=== PATIENT | male | born 1990 | race Two or more races ===

== ENCOUNTER 2017-11-16 08:13 | Emergency (ER) | payer BC ==
--- NOTE | 2017-11-16 10:13 | EDM.PDOC ---
ED HPI GENERAL MEDICAL PROBLEM - General Chief Complaint: Gastrointestinal Problem Stated Complaint: HEMORRHOID Time Seen by Provider: 11/16/17 10:08 Source of Information: Reports: Patient History Limitations: Reports: No Limitations - History of Present Illness INITIAL COMMENTS - FREE TEXT/NARRATIVE: 27-year-old male presents to the ED with painful swelling at the anus for the last 3 days. She reports she's had hemorrhoidal problems once in the past. States his stools are usually soft and regular. Have a diarrhea problem. Does stand a lot in the workplace sometimes 12 hours or more. While he was in the ED has hemorrhoid x-ray ruptured and has provided him with a good deal of pain relief. Onset: Gradual Onset Date: 11/13/17 Duration: Day(s): Location: Reports: Other (Anus) Quality: Reports: Ache, Pressure, Throbbing Severity: Severe (Pain 8 out of 10.) Improves with: Reports: Other (Pain much improved since hemorrhoid has ruptured. ) Worsens with: Reports: Other (Standing or touching the area.) Context: Denies: Activity, Exercise, Lifting, Sick Contact, Trauma, Other Associated Symptoms: Reports: No Other Symptoms Treatments ST[employer]ET [employer]: Reports: NSAIDS Rectal Pain Score (Numeric/FACES): 8 - Related Data Allergies Allergy/AdvReac Type Severity Reaction Status Date / Time No Known Allergies Allergy Verified 11/16/17 08:42 Home Meds: Home Meds . [No Known Home Meds] 11/16/17 [History] Past Medical History - Past Health History Medical/Surgical History: Denies Medical/Surgical History Social & Family History - Tobacco Use Smoking Status *Q: Never Smoker - Recreational Drug Use Recreational Drug Use: No - Living Situation & Occupation Living situation: Reports: Single Occupation: Employed ED ROS GENERAL - Review of Systems Review Of Systems: See Below Constitutional: Reports: No Symptoms HEENT: Reports: No Symptoms Respiratory: Reports: No Symptoms Cardiovascular: Reports: No Symptoms Endocrine: Reports: No Symptoms GI/Abdominal: Reports: Other (External hemorrhoids) : Reports: No Symptoms Musculoskeletal: Reports: No Symptoms Skin: Reports: No Symptoms Neurological: Reports: No Symptoms ED EXAM, GI/ABD - Physical Exam Exam: See Below Exam Limited By: No Limitations General Appearance: Alert, WD/WN, Mild Distress Rectal (Males) Exam: Other (Examination of the anus only. He has a crenated ruptured external hemorrhoid at the 11 o'clock position. It has been actively bleeding. No clot is evident.) Extremities: Normal Inspection, Normal Range of Motion, Non-Tender, No Pedal Edema Course - Vital Signs Last Recorded V/S: Last Vital Signs Temp 36.6 C 11/16/17 08:40 Pulse 122 H 11/16/17 08:40 Resp 17 11/16/17 08:40 BP 168/108 H 11/16/17 08:40 Pulse Ox 100 11/16/17 08:40 - Orders/Labs/Meds Orders: Active Orders 24 hr Category Date Time Status Ellen Daniel [Tucks] Med 11/16/17 10:08 Active 1 pad TOP ASDIRECTED PRN Medication Orders Ellen Daniel (Tucks) 1 pad TOP ASDIRECTED PRN PRN Reason: Hemorrhoids Meds: Medications Generic Name Dose Route Start Last Admin Trade Name Freq PRN Reason Stop Dose Admin Witlei Lita 1 pad 11/16/17 10:08 Tucks TOP ASDIRECTED PRN Hemorrhoids - Radiology Interpretation Free Text/Narrative:: 27-year-old male presents to the ED with a painful thrombosed hemorrhoid at the 11 o'clock position of the anus for the last 3 days. While he was in the ED waiting to be examined the hemorrhoid actually ruptured. This provided him with a great deal of pain relief. Examinations reveals a crenated hemorrhoidal tag at the 11 o'clock position. The clot appears to have extruded. Treatment therefore will be hot sitz baths 4 times a day for the next 2 days. Bacitracin to the area alternating with Preparation H. Will also use witch lita pads to the area after every sitz bath for the next 2-3 days. Motrin 600 mg every 6 hours needed for pain relief. Follow-up as needed. Departure - Departure Time of Disposition: 10:10 Disposition: Home, Self-Care 01 Condition: Fair Clinical Impression: External hemorrhoid, bleeding - Discharge Information Instructions: Hemorrhoids Referrals: PCP,None [Primary Care Provider] - Forms: ED Department Discharge Additional Instructions: Evaluation in the emergency him today in regards to a painful external hemorrhoid at the low 11 o'clock position on the anus. Pain is been present for about 3 days. During your stay in the ED the hemorrhoid ruptured and expressed the clot. Therefore no further treatment is required other than suggest hot water --sitz baths 4 times daily today and tomorrow. After sitting in the bathtub for about 5 minutes , massage the area gently to express any further clot or blood today. Events 3 formation of clots and rethrombosis. Treatment is alternating Preparation H cream with bacitracin ointment using each about twice daily. May apply witch lita pack to the hemorrhoid for the next 3 days. May continue Motrin 600 mg every 6 hours needed to relieve pain and inflammation. Hemorrhoid will heal on its own over the next 5-6 days. Return to the ED if any further problems occur. - My Orders Last 24 Hours: My Active Orders 11/16/17 10:08 Witlei Daniel [Karen] 1 pad TOP ASDIRECTED PRN - Assessment/Plan Last 24 Hours: My Active Orders 11/16/17 10:08 Ellen Daniel [Daniels] 1 pad TOP ASDIRECTED PRN
[2017-11-16] MEDS: Witch Hazel Medicated Pads 100/Jar TOP PRN (10:36)
== END 2017-11-16 10:39 | disposition home or self-care (01) ==
LOC: JD.ED 08:13
DX: K64.4 Residual hemorrhoidal skin tags (principal)
CPT/HCPCS: 99282; A9270; 99283